=== PATIENT | female | born 1995 | race Caucasian/White ===

== ENCOUNTER 2016-12-30 07:35 | Emergency (ER) | payer SELFPAY ==
[~2016-12-30] VITALS: Ht 167.6 cm; Wt 100.0 kg
[~2016-12-30 07:35] MED LIST: AMOXICILLIN500 MG PO; BACTRIM SUSP OR; KEFLEX250 MG/5 M OR; NO HOME MEDS; TRIAMCINOLON0.11 EX; TYLENOL & COD12.5 ML OR; [UNRECOGNIZED DRUG - CODE] EX
[2016-12-30] MEDS ORDERED: POLYTRIM OS (07:58)
[2016-12-30 08:01] VITALS: BP 140/68
== END 2016-12-30 08:16 | disposition home or self-care (01) | DRG 125 ==
LOC: ED 07:35
DX: S05.02XA Injury of conjunctiva and corneal abrasion without foreign body, left eye, initial encounter (principal); W22.8XXA Striking against or struck by other objects, initial encounter; Y92.009 Unspecified place in unspecified non-institutional (private) residence as the place of occurrence of the external cause

== ENCOUNTER 2018-08-29 14:58 | Emergency (ER) | payer SELFPAY ==
[~2018-08-29] VITALS: Ht 167.6 cm; Wt 103.6 kg
[~2018-08-29 14:58] MED LIST changes: +POLYTRIM OS
[2018-08-29 15:48] LABS: HEMATOCRIT 33.9 % (37.0-47.0); HEMOGLOBIN 11.5 g/dl (12.0-16.0); IMMATURE GRANULOCYTES 0.3 % (0.0-5.0); MEAN CELL VOLUME 86.3 fL CALC (80.0-100.0); MEAN CORPUSCULAR HGB 29.3 pG CALC (26.0-32.0); MEAN CORPUSCULAR HGB CONC 33.9 g/L CALC (32.0-36.0); NEUT# 4.13 thou/uL (2.00-7.15); RED BLOOD COUNT 3.93 mill/uL (4.20-5.60)
[2018-08-29 15:52] LABS: URINE BILIRUBIN - DIPSTICK NEGATIVE (NEGATIVE); URINE BLOOD DIPSTICK NEGATIVE (NEGATIVE); URINE COLOR YELLOW; URINE GLUCOSE - DIPSTICK NEGATIVE (NEGATIVE); URINE KETONE NEGATIVE (NEGATIVE); URINE LEUK ESTERASE NEGATIVE (NEGATIVE); URINE NITRITE - DIPSTICK NEGATIVE (Negative); URINE PH 5.5 (4.5-8.0); URINE PROTEIN - DIPSTICK 30 mg/dL (NEG-TRACE); URINE SPECIFIC GRAVITY >=1.030; URINE UROBILINOGEN - DIPSTICK 0.2 E.U./dL (0.2)
[2018-08-29 16:01] LABS: URINE RBC 0-2 RBC/hpf (0-5); URINE SQUAMOUS EPITHELIAL CELL MODERATE EPI/hpf (0-FEW); URINE WBC 0-2 WBC/hpf (0-5)
[2018-08-29 16:08] LABS: ALBUMIN 3.9 g/dL (3.2-5.0); ALKALINE PHOSPHATASE 39 u/l (38-126); ANION GAP 12 (6-22 (CALC)); BILIRUBIN, TOTAL 0.4 mg/dL (0.0-1.4); BUN 13 mg/dL (7-17); BUN/CREATININE RATIO 21 (12-20 (CALC)); CARBON DIOXIDE 23 mmol/l (22-30); CHLORIDE 106 mmol/l (95-108); CREATININE 0.6 mg/dL (0.5-1.0); GFR > 60 ML/MIN (>=60 (CALC)); GFR FOR AFR.AMER. > 60 ML/MIN (>=60 (CALC)); POTASSIUM 3.5 mmol/l (3.5-5.1); SGOT/AST 14 u/l (14-36); SODIUM 138 mmol/l (137-146); TOTAL PROTEIN 6.4 g/dL (6.3-8.2)
[2018-08-29 16:51] LABS: BETA-HCG, QUANT(RESULT NUMBER) 13964 mIU/mL
[2018-08-29 16:59] VITALS: BP 114/73
== END 2018-08-29 16:59 | disposition home or self-care (01) | DRG 833 ==
LOC: ED 14:58
PROVIDERS: Family Medicine
DX: O99.411 Diseases of the circulatory system complicating pregnancy, first trimester (principal); R00.2 Palpitations; Z3A.01 Less than 8 weeks gestation of pregnancy

== ENCOUNTER 2018-09-08 21:56 | Emergency (ER) | payer MEDICAID ==
[~2018-09-08] VITALS: Ht 167.6 cm; Wt 100.0 kg
[2018-09-08 23:12] LABS: HEMATOCRIT 34.2 % (37.0-47.0); HEMOGLOBIN 11.7 g/dl (12.0-16.0); IMMATURE GRANULOCYTES 0.3 % (0.0-5.0); MEAN CELL VOLUME 85.5 fL CALC (80.0-100.0); MEAN CORPUSCULAR HGB 29.3 pG CALC (26.0-32.0); MEAN CORPUSCULAR HGB CONC 34.2 g/L CALC (32.0-36.0); NEUT# 5.23 thou/uL (2.00-7.15); RED CELL DISTRI WIDTH 11.8 % (11.5-15.5)
[2018-09-08 23:13] LABS: URINE BILIRUBIN - DIPSTICK NEGATIVE (NEGATIVE); URINE BLOOD DIPSTICK MODERATE (NEGATIVE); URINE COLOR YELLOW; URINE GLUCOSE - DIPSTICK NEGATIVE (NEGATIVE); URINE KETONE NEGATIVE (NEGATIVE); URINE LEUK ESTERASE NEGATIVE (NEGATIVE); URINE NITRITE - DIPSTICK NEGATIVE (Negative); URINE PH 5.5 (4.5-8.0); URINE PROTEIN - DIPSTICK 30 mg/dL (NEG-TRACE); URINE SPECIFIC GRAVITY >=1.030; URINE UROBILINOGEN - DIPSTICK 0.2 E.U./dL (0.2)
[2018-09-08 23:22] LABS: URINE SQUAMOUS EPITHELIAL CELL FEW EPI/hpf (0-FEW); URINE WBC 0-2 WBC/hpf (0-5)
[2018-09-09] MEDS ORDERED: PRENATAL1 TA1 PO (02:11)
[2018-09-09 02:17] VITALS: BP 129/79
== END 2018-09-09 02:32 | disposition home or self-care (01) ==
LOC: ED 21:56
PROVIDERS: Emergency Medicine
DX: O20.0 Threatened abortion (principal); Z3A.01 Less than 8 weeks gestation of pregnancy

== ENCOUNTER 2019-02-11 17:17 | Emergency (ER) | payer MEDICAID ==
[~2019-02-11 17:17] MED LIST changes: +PRENATAL1 TA1 PO
[2019-02-11 17:30] VITALS: BP 136/84
== END 2019-02-11 19:30 | disposition left against medical advice (07) | DRG 204 ==
LOC: ED 17:17 → LWOBS 17:30
DX: R05 Cough (principal)

== ENCOUNTER 2019-07-11 13:30 | Emergency (ER) | payer OTHER ==
[2019-07-11 14:52] LABS: URINE BILIRUBIN - DIPSTICK NEGATIVE (NEGATIVE); URINE BLOOD DIPSTICK NEGATIVE (NEGATIVE); URINE COLOR YELLOW; URINE GLUCOSE - DIPSTICK NEGATIVE (NEGATIVE); URINE KETONE NEGATIVE (NEGATIVE); URINE LEUK ESTERASE NEGATIVE (NEGATIVE); URINE NITRITE - DIPSTICK NEGATIVE (Negative); URINE PH 5.5 (4.5-8.0); URINE PROTEIN - DIPSTICK 30 mg/dL (NEG-TRACE); URINE SPECIFIC GRAVITY >=1.030; URINE UROBILINOGEN - DIPSTICK 0.2 E.U./dL (0.2)
[2019-07-11 15:29] LABS: URINE SQUAMOUS EPITHELIAL CELL FEW EPI/hpf (0-FEW)
[2019-07-11] MEDS ORDERED: HYDROCO/APAP1 TA9 PO (17:25)
[2019-07-11 17:29] VITALS: BP 132/85
== END 2019-07-11 17:34 | disposition home or self-care (01) | DRG 552 ==
LOC: ED 13:30
DX: S16.1XXA Strain of muscle, fascia and tendon at neck level, initial encounter (principal); S00.93XA Contusion of unspecified part of head, initial encounter; S60.512A Abrasion of left hand, initial encounter; S80.01XA Contusion of right knee, initial encounter; S63.502A Unspecified sprain of left wrist, initial encounter; V43.52XA Car driver injured in collision with other type car in traffic accident, initial encounter

== ENCOUNTER 2021-10-13 07:27 | Emergency (ER) | payer OTHER ==
[~2021-10-13] VITALS: Ht 167.6 cm; Wt 109.1 kg
[~2021-10-13 07:27] MED LIST changes: +HYDROCO/APAP1 TA9 PO; +PANTOPRAZOLE SO40 M1 PO
[2021-10-13 07:33] VITALS: BP 122/85
[2021-10-13] MEDS ORDERED: DIFLUCAN150 MG PO (07:49)
[2021-10-13] MEDS ORDERED: ZPAK PO (07:49)
[2021-10-13 08:14] VITALS: BP 122/85
== END 2021-10-13 08:21 | disposition home or self-care (01) ==
LOC: ED 07:27
DX: J06.9 Acute upper respiratory infection, unspecified (principal); F41.9 Anxiety disorder, unspecified; Z20.822 Contact with and (suspected) exposure to COVID-19

== ENCOUNTER 2021-12-31 17:29 | Emergency (ER) | payer OTHER ==
[~2021-12-31] VITALS: Ht 167.6 cm; Wt 112.4 kg
[2021-12-31] VITALS (7 sets, daily range): BP systolic 125–155; BP diastolic 77–98
[~2021-12-31 17:29] MED LIST changes: +DIFLUCAN150 MG PO; +ZPAK PO
[2021-12-31 17:58] LABS: HEMATOCRIT 36.1 % (37.0-47.0); HEMOGLOBIN 12.2 g/dl (12.0-16.0); IMMATURE GRANULOCYTES 0.2 % (0.0-5.0); MEAN CELL VOLUME 81.9 fL CALC (80.0-100.0); MEAN CORPUSCULAR HGB 27.7 pG CALC (26.0-32.0); MEAN CORPUSCULAR HGB CONC 33.8 g/dL CAL (32.0-36.0); NEUT# 3.69 thou/uL (2.00-7.15); RED BLOOD COUNT 4.41 mill/uL (4.20-5.60); RED CELL DISTRI WIDTH 12.6 % (11.5-15.5)
[2021-12-31 18:07] LABS: ALBUMIN 4.8 g/dL (3.2-5.0); ALKALINE PHOSPHATASE 59 u/l (38-126); ANION GAP 17 (6-22 (CALC)); BILIRUBIN, TOTAL 0.3 mg/dL (0.0-1.4); BUN 15 mg/dL (7-17); BUN/CREATININE RATIO 19 (12-20 (CALC)); CARBON DIOXIDE 25 mmol/l (22-30); CHLORIDE 103 mmol/l (95-108); CREATININE 0.8 mg/dL (0.5-1.0); GFR FOR AFR.AMER. > 60 ML/MIN (>=60 (CALC)); GFR OTHER RACES > 60 ML/MIN (>=60 (CALC)); POTASSIUM 3.6 mmol/l (3.5-5.1); SGOT/AST 20 u/l (14-36); SODIUM 140 mmol/l (137-146); TOTAL PROTEIN 7.8 g/dL (6.3-8.2)
[2021-12-31 18:32] LABS: MYOGLOBIN 14 ng/mL (0 - 62)
[2021-12-31 19:05] LABS: URINE BILIRUBIN - DIPSTICK NEGATIVE (NEGATIVE); URINE BLOOD DIPSTICK MODERATE (NEGATIVE); URINE COLOR YELLOW; URINE GLUCOSE - DIPSTICK NEGATIVE (NEGATIVE); URINE KETONE NEGATIVE (NEGATIVE); URINE LEUK ESTERASE NEGATIVE (NEGATIVE); URINE PROTEIN - DIPSTICK 30 mg/dL (NEG-TRACE); URINE SPECIFIC GRAVITY 1.025; URINE UROBILINOGEN - DIPSTICK 0.2 E.U./dL (0.2)
[2021-12-31 19:15] LABS: URINE NITRITE - DIPSTICK NEGATIVE (Negative)
[2021-12-31 19:16] LABS: URINE SQUAMOUS EPITHELIAL CELL FEW EPI/hpf (0-FEW); URINE WBC 0-2 WBC/hpf (0-5)
== END 2021-12-31 19:34 | disposition home or self-care (01) ==
LOC: ED 17:29
PROVIDERS: Family Medicine
DX: I10 Essential (primary) hypertension (principal); F41.9 Anxiety disorder, unspecified

== ENCOUNTER 2022-02-18 08:24 | Emergency (ER) | payer OTHER ==
[~2022-02-18] VITALS: Ht 167.6 cm; Wt 111.0 kg
[2022-02-18] MEDS ORDERED: DIFLUCAN150 MG PO (09:26)
[2022-02-18 09:37] VITALS: BP 120/82
== END 2022-02-18 09:50 | disposition home or self-care (01) ==
LOC: ED 08:24
DX: B37.31 Acute candidiasis of vulva and vagina (principal); E66.9 Obesity, unspecified; F41.9 Anxiety disorder, unspecified

== ENCOUNTER 2022-06-06 11:45 | Emergency (ER) | payer OTHER ==
[~2022-06-06] VITALS: Ht 167.6 cm; Wt 109.0 kg
[2022-06-06 12:12] VITALS: BP 132/87
[2022-06-06 12:15] VITALS: BP 127/79
[2022-06-06 12:30] VITALS: BP 146/104
[2022-06-06 12:46] VITALS: BP 123/83
[2022-06-06] MEDS ORDERED: XYZAL ALLERGY 245 MG PO (12:47)
[2022-06-06] MEDS ORDERED: MECLIZINE HYDRO25 MG PO (12:47)
[2022-06-06] MEDS ORDERED: ALLERGY RE50 MCG/ACT (12:47)
[2022-06-06 12:55] VITALS: BP 123/83
== END 2022-06-06 13:17 | disposition home or self-care (01) ==
LOC: ED 11:45
DX: J31.0 Chronic rhinitis (principal); R42 Dizziness and giddiness; F41.9 Anxiety disorder, unspecified

== ENCOUNTER 2022-10-21 15:01 | Emergency (ER) | payer BC ==
[~2022-10-21] VITALS: Ht 167.6 cm; Wt 111.0 kg
[~2022-10-21 15:01] MED LIST changes: +ALLERGY RE50 MCG/ACT; +MECLIZINE HYDRO25 MG PO; +XYZAL ALLERGY 245 MG PO
[2022-10-21 15:15] VITALS: BP 127/90
[2022-10-21 15:30] VITALS: BP 121/81
[2022-10-21 15:45] VITALS: BP 126/73
[2022-10-21 16:00] VITALS: BP 130/83
[2022-10-21] MEDS ORDERED: AMOXICILLIN500 MG PO (16:11)
[2022-10-21 16:15] VITALS: BP 113/91
[2022-10-21 16:16] VITALS: BP 113/91
== END 2022-10-21 16:16 | disposition home or self-care (01) | DRG 153 ==
LOC: ED 15:01
DX: J02.0 Streptococcal pharyngitis (principal); Z20.822 Contact with and (suspected) exposure to COVID-19

== ENCOUNTER 2023-02-24 14:44 | Emergency (ER) | payer BC ==
[2023-02-25] MEDS ORDERED: BUSPAR5 MG PO (11:57)
[2023-02-25] MEDS ORDERED: KAPSPARGO SPRIN25 MG PO (11:59)
[2023-02-25] MEDS ORDERED: PAROXETINE10 M1 PO (12:00)
[2023-02-25] MEDS ORDERED: PAXLOVID PO (13:30)
== END 2023-02-24 16:54 | disposition left against medical advice (07) | DRG 951 ==
LOC: ED 14:44 → LWOBS 16:54 → ED 16:54
DX: Z53.21 Procedure and treatment not carried out due to patient leaving prior to being seen by health care provider (principal)

== ENCOUNTER 2023-02-25 11:38 | Emergency (ER) | payer BC ==
[~2023-02-25] VITALS: Ht 167.6 cm; Wt 117.0 kg
[2023-02-25] MEDS ORDERED: BUSPAR5 MG PO (11:57)
[2023-02-25] MEDS ORDERED: KAPSPARGO SPRIN25 MG PO (11:59)
[2023-02-25] MEDS ORDERED: PAROXETINE10 M1 PO (12:00)
[2023-02-25] MEDS ORDERED: PAXLOVID PO (13:30)
[2023-02-25 13:32] VITALS: BP 142/86
== END 2023-02-25 13:44 | disposition home or self-care (01) | DRG 179 ==
LOC: ED 11:38
DX: U07.1 COVID-19 (principal); R50.9 Fever, unspecified; J02.9 Acute pharyngitis, unspecified; H92.01 Otalgia, right ear; R05.9 Cough, unspecified; I10 Essential (primary) hypertension; F41.9 Anxiety disorder, unspecified

== ENCOUNTER 2023-09-18 17:57 | Emergency (ER) | payer SELFPAY ==
[~2023-09-18] VITALS: Ht 167.6 cm; Wt 106.6 kg
[~2023-09-18 17:57] MED LIST changes: +BUSPAR5 MG PO; +KAPSPARGO SPRIN25 MG PO; +PAROXETINE10 M1 PO; +PAXLOVID PO
[2023-09-18] MEDS ORDERED: ERYTHROMYCIN O3.5 GM OD (18:31)
[2023-09-18] MEDS ORDERED: DIFLUCAN150 MG PO (18:31)
[2023-09-18] MEDS ORDERED: AMOX/K CLAV875 M1 PO (18:31)
[2023-09-18 18:57] VITALS: BP 138/89
== END 2023-09-18 18:58 | disposition home or self-care (01) | DRG 153 ==
LOC: ED 17:57
DX: H66.91 Otitis media, unspecified, right ear (principal); H10.9 Unspecified conjunctivitis; I10 Essential (primary) hypertension; F41.9 Anxiety disorder, unspecified

== ENCOUNTER 2024-04-17 10:17 | Emergency (ER) | payer SELFPAY ==
[2024-04-17] VITALS (14 sets, daily range): BP systolic 102–135; BP diastolic 55–90
[~2024-04-17] VITALS: Ht 167.6 cm; Wt 109.1 kg
[~2024-04-17 10:17] MED LIST changes: +AMOX/K CLAV875 M1 PO; +ERYTHROMYCIN O3.5 GM OD
[2024-04-17] MEDS ORDERED: IBUPROFEN 800 MG/TAB PO ONE (11:55)
[2024-04-17] MEDS ORDERED: MUCINEX1200 MG PO (13:36)
[2024-04-17] MEDS ORDERED: CLARITIN-D1 TAB PO (13:36)
[2024-04-17] MEDS ORDERED: NASACORT A55 MCG/ACT NS (13:36)
== END 2024-04-17 13:48 | disposition home or self-care (01) | DRG 153 ==
LOC: ED 10:17
DX: J32.9 Chronic sinusitis, unspecified (principal); I10 Essential (primary) hypertension; F41.9 Anxiety disorder, unspecified; Z20.822 Contact with and (suspected) exposure to COVID-19
CPT/HCPCS: J1100

== ENCOUNTER 2024-05-02 18:35 | Emergency (ER) | payer SELFPAY ==
[~2024-05-02] VITALS: Ht 167.6 cm; Wt 117.0 kg
[~2024-05-02 18:35] MED LIST changes: +CLARITIN-D1 TAB PO; +MUCINEX1200 MG PO; +NASACORT A55 MCG/ACT NS
[2024-05-02 18:51] VITALS: BP 122/79
[2024-05-02 19:00] VITALS: BP 116/80
[2024-05-02 19:15] VITALS: BP 129/83
[2024-05-02] MEDS ORDERED: VIBRAMYCIN100 M2 PO (19:19)
[2024-05-02] MEDS ORDERED: DOXYCYCLINE HYCLATE 100 MG/CAP PO ONE (19:20)
[2024-05-02 19:30] VITALS: BP 139/86
[2024-05-02] MEDS ORDERED: DIFLUCAN150 MG PO (19:34)
== END 2024-05-02 19:35 | disposition home or self-care (01) | DRG 603 ==
LOC: ED 18:35
DX: L03.115 Cellulitis of right lower limb (principal); B95.62 Methicillin resistant Staphylococcus aureus infection as the cause of diseases classified elsewhere; I10 Essential (primary) hypertension; F41.9 Anxiety disorder, unspecified